=== PATIENT | female | born 1955 | race Caucasian/White ===

== ENCOUNTER 2022-08-23 19:59 | Emergency (ER) | payer OTHER ==
[~2022-08-23 19:59] MED LIST: Iopamidol 370 76% 125 ML VIAL FS ONE; Sodium Chloride 0.9% 100 ML BAG ONE
[2022-08-23 21:22] LABS: #Lymphocytes 1.3 thou/uL (1.20-3.40); #Monocytes 0.5 thou/uL (0.11-0.59); #Neutrophils 8.7 thou/uL (1.40-6.50); %Basophils 0.5 % (0.0-1.0); %Lymphocytes 12.3 % (21.0-51.0); %Monocytes 4.4 % (0.0-10.0); %Neutrophils 82.8 % (42.0-75.0); Hemoglobin 13.4 g/dL (12.0-16.0); Mean Corpuscular HGB CONC 32.5 g/dL (32.0-36.0); Mean Corpuscular Volume 98.4 fl (78.0-98.0); Mean Platelet Volume 5.9 fL (7.4-10.4); Platelet Count 387 10x3/uL (130-400); RBC Distribution Width 11.4 % (11.5-14.5); Red Blood Cell (RBC) Count 4.17 mill/uL (4.20-5.40); White Blood Cell (WBC) Count 10.6 10x3/uL (4.8-10.8)
[2022-08-23 21:41] LABS: Bilirubin Negative (Negative); Blood, Urine Trace (Negative); Clarity Clear (Clear); Glucose, Urine (Dipstick) Negative (Negative); Ketone, Urine Negative (Negative); Leukocyte Negative (Negative); Nitrite Negative (Negative); Protein, Urine (Dipstick) Trace mg/dL (Neg-Trace); Urobilinogen 0.2 mg/dL (Less than 2)
[2022-08-23 21:44] LABS: ALT (SGPT) 40 U/L (8-55); AST (SGOT) 27 U/L (5-34); Albumin 3.8 g/dL (3.4-4.8); Alkaline Phosphatase 98 U/L (40-110); Anion Gap 18 mmol/L (10-20); BUN (Urea Nitrogen) 15 mg/dL (9.8-20.1); Bilirubin, Total 0.4 mg/dL (0.2-1.2); Calc. Creatinine Clearance 0 mL/min (70-130); Calcium 8.8 mg/dL (7.8-10.44); Carbon Dioxide 19 mmol/L (23-31); Chloride 101 mmol/L (98-107); Estimated GFR 69; Globulin 2.6 g/dL (2.4-3.5); Glucose 274 mg/dL (80-115); Potassium 4.5 mmol/L (3.5-5.1); Protein, Total 6.4 g/dL (5.8-8.1); Sodium 133 mmol/L (136-145)
[2022-08-23] MEDS ORDERED: Sodium Chloride 0.9% 2,000 ML ONE (21:51)
[2022-08-23 21:52] LABS: Bacteria/HPF None Seen HPF (None Seen); RBC/HPF 0-3 HPF (0-3); Squamous Epithelial 0-3 HPF (0-3); Transitional Epithelial 0-3 HPF (None Seen)
[2022-08-23 22:05] LABS: CKMB 3.5 ng/mL (0-6.6)
[2022-08-23 22:07] LABS: SARS-CoV-2 NAA Rapid Test DETECTED (NotDetected)
[2022-08-24] MEDS ORDERED: Nicotine 21 MG PATCH TOP SCH (01:00)
[2022-08-24] MEDS ORDERED: traZODone HCl 50 MG TAB PO SCH (01:00)
[2022-08-24] MEDS ORDERED: Melatonin 3 MG TAB PO SCH (01:00)
[2022-08-24 01:17] LABS: Lactic Acid 1.5 mmol/L (0.5-2.2)
== END 2022-08-24 01:46 | disposition short-term general hospital (02) ==
LOC: MADERS 19:59
DX: U07.1 COVID-19 (principal); J12.82 Pneumonia due to coronavirus disease 2019; R77.8 Other specified abnormalities of plasma proteins; I10 Essential (primary) hypertension; I25.2 Old myocardial infarction; F17.210 Nicotine dependence, cigarettes, uncomplicated; Z79.899 Other long term (current) drug therapy
CPT/HCPCS: 0240U; 71275; 80053; 82553; 83605; 83880; 84484; 85025; 87040; 87086; 93005; 99285; 81003; 81015; J7050; Q9967

== ENCOUNTER 2022-09-22 10:50 | Emergency (ER) | payer OTHER ==
[~2022-09-22 10:50] MED LIST changes: +Iopamidol 370 76% 100 ML VIAL ONE; -Iopamidol 370 76% 125 ML VIAL FS ONE; -Sodium Chloride 0.9% 100 ML BAG ONE; +Sodium Chloride 0.9% 500 ML BAG ONE
[2022-09-22 11:16] LABS: Blood, Urine Trace (Negative); Glucose, Urine (Dipstick) 250 mg/dL (Negative)
[2022-09-22 11:19] LABS: Clarity Hazy (Clear)
[2022-09-22 11:20] LABS: Leukocyte Unable to Interpret (Negative); Nitrite Unable to Interpret (Negative)
[2022-09-22 11:21] LABS: Bilirubin Unable to Interpret (Negative); Ketone, Urine Unable to Interpret mg/dL (Negative); Protein, Urine (Dipstick) Unable to Interpret mg/dL (Neg-Trace); Urobilinogen UNABLE TO INTERPRET mg/dL (Less than 2)
[2022-09-22 11:23] LABS: Bacteria/HPF 4+ HPF (None Seen); Squamous Epithelial 0-3 HPF (0-3); WBC/HPF Greater Than 50 HPF (0-3)
[2022-09-22] MEDS ORDERED: Sodium Chloride 0.9% 500 ML ONE (11:24)
[2022-09-22 12:04] LABS: ALT (SGPT) 23 U/L (8-55); AST (SGOT) 22 U/L (5-34); Albumin 3.7 g/dL (3.4-4.8); Alkaline Phosphatase 110 U/L (40-110); Anion Gap 15 mmol/L (10-20); BUN (Urea Nitrogen) 8 mg/dL (9.8-20.1); Bilirubin, Total 0.5 mg/dL (0.2-1.2); Calc. Creatinine Clearance 0 mL/min (70-130); Calcium 9.5 mg/dL (7.8-10.44); Carbon Dioxide 22 mmol/L (23-31); Chloride 107 mmol/L (98-107); Estimated GFR 82; Globulin 3.1 g/dL (2.4-3.5); Glucose 148 mg/dL (80-115); Lipase 22 U/L (8-78); Magnesium 2.2 mg/dL (1.6-2.6); Potassium 4.8 mmol/L (3.5-5.1); Protein, Total 6.8 g/dL (5.8-8.1); Sodium 139 mmol/L (136-145)
[2022-09-22 12:11] LABS: #Basophils 0.1 thou/uL (0.0-0.2); #Lymphocytes 1.1 thou/uL (1.20-3.40); #Monocytes 0.8 thou/uL (0.11-0.59); #Neutrophils 11.8 thou/uL (1.40-6.50); %Basophils 0.8 % (0.0-1.0); %Eosinophils 0.1 % (0.0-10.0); %Lymphocytes 7.6 % (21.0-51.0); %Neutrophils 85.4 % (42.0-75.0); Hemoglobin 12.3 g/dL (12.0-16.0); Mean Corpuscular HGB CONC 33.4 g/dL (32.0-36.0); Mean Corpuscular Hemoglobin 32.1 pg (27.0-31.0); Mean Platelet Volume 5.8 fL (7.4-10.4); Platelet Count 345 10x3/uL (130-400); RBC Distribution Width 11.5 % (11.5-14.5); Red Blood Cell (RBC) Count 3.83 mill/uL (4.20-5.40); White Blood Cell (WBC) Count 13.9 10x3/uL (4.8-10.8)
[2022-09-22] MEDS ORDERED: cefTRIAXone\\ROCEPHIN 1 GM VIAL ONE (12:13)
[2022-09-22] MEDS ORDERED: Ondansetron PF 4 MG/2 ML Vial ONE (12:13)
[2022-09-22] MEDS ORDERED: Ketorolac Tromethamine 30 MG/ML VIAL ONE (14:10)
[2022-09-22] MEDS ORDERED: Diazepam 10 MG/2 ML SYRINGE ONE (14:10)
[2022-09-22] MEDS ORDERED: Nicotine 7 MG PATCH ONE (15:10)
== END 2022-09-22 16:20 | disposition short-term general hospital (02) ==
LOC: MADERS 10:50
DX: A41.9 Sepsis, unspecified organism (principal); N12 Tubulo-interstitial nephritis, not specified as acute or chronic; I10 Essential (primary) hypertension; E11.9 Type 2 diabetes mellitus without complications; F17.210 Nicotine dependence, cigarettes, uncomplicated; Z79.899 Other long term (current) drug therapy
CPT/HCPCS: 74177; 80053; 81003; 81015; 83605; 83690; 83735; 85025; 87077; 87086; 96365; 96375; J0696; J1885; J2405; J3360; J7030; Q9967

== ENCOUNTER 2023-07-19 19:12 | Emergency (ER) | payer OTHER | END 2023-07-19 22:10 | disposition home or self-care (01) | LOC: MADERS 19:12 | DX: M25.571 Pain in right ankle and joints of right foot (principal); I10 Essential (primary) hypertension; E11.9 Type 2 diabetes mellitus without complications; F17.210 Nicotine dependence, cigarettes, uncomplicated; Z79.899 Other long term (current) drug therapy ==

== ENCOUNTER 2023-10-11 07:16 | Emergency (ER) | payer OTHER ==
[2023-10-11 07:45] LABS: Bilirubin Negative (Negative); Blood, Urine Moderate (Negative); Glucose, Urine (Dipstick) Negative (Negative); Ketone, Urine Negative (Negative); Leukocyte Small (Negative); Nitrite Negative (Negative); Protein, Urine (Dipstick) > or equal to 300 mg/dL (Neg-Trace); Specific Gravity, Urine 1.025 (1.005-1.030); Urobilinogen 0.2 mg/dL (Less than 2)
[2023-10-11 07:46] LABS: Clarity Cloudy (Clear)
[2023-10-11 07:52] LABS: CAUTI Indications for Culture Dysuria,urgency,freq; WBC/HPF Greater Than 50 HPF (0-3)
[2023-10-11 07:53] LABS: Bacteria/HPF 3+ HPF (None Seen)
[2023-10-11 07:54] LABS: Urine Culture Reflex Yes Yes
[2023-10-11] MEDS ORDERED: Ondansetron ODT 4 MG TAB ONE (08:13)
[2023-10-11] MEDS ORDERED: Sodium Chloride 0.9% 100 ML ONE (08:46)
[2023-10-11] MEDS ORDERED: Ketorolac Tromethamine 30 MG (1 mL) VIAL ONE (08:46)
[2023-10-11] MEDS ORDERED: cefTRIAXone (ROCEPHIN) 1 GM VIAL ONE (08:46)
[2023-10-11] MEDS ORDERED: Sodium Chloride 0.9% 1,000 ML ONE ×2 (08:46→10:14)
[2023-10-11 09:25] LABS: ALT (SGPT) 32 U/L (8-55); AST (SGOT) 32 U/L (5-34); Albumin 3.4 g/dL (3.4-4.8); Alkaline Phosphatase 226 U/L (40-110); Anion Gap 20 mmol/L (10-20); BUN (Urea Nitrogen) 39 mg/dL (9.8-20.1); Bilirubin, Total 0.3 mg/dL (0.2-1.2); Calc. Creatinine Clearance 0 mL/min (70-130); Calcium 8.8 mg/dL (7.8-10.44); Carbon Dioxide 18 mmol/L (23-31); Chloride 103 mmol/L (98-107); Estimated GFR 14; Glucose 136 mg/dL (80-115); Potassium 4.3 mmol/L (3.5-5.1); Protein, Total 6.4 g/dL (5.8-8.1); Sodium 137 mmol/L (136-145)
[2023-10-11 09:26] LABS: Band 9 % (5-11); Hemoglobin 13.9 g/dL (12.0-16.0); Lymphocytes 3 % (21-51); MDiff Complete? YES; Macrocytosis SLIGHT = 6-15 cells (100X) (0-5/hpf); Manual Diff?? YES; Mean Corpuscular HGB CONC 32.4 g/dL (32.0-36.0); Mean Corpuscular Volume 101.8 fl (78.0-98.0); Mean Platelet Volume 7.7 fL (7.4-10.4); Monocytes 2 % (0-10); Neutrophil 85 % (42-75); Platelet Count 133 10x3/uL (130-400); RBC Distribution Width 12.8 % (11.5-14.5); Reactive Lymphocytes 1 % (0-10); Red Blood Cell (RBC) Count 4.23 mill/uL (4.20-5.40)
[2023-10-11 09:27] LABS: Platelet Adequacy Comment Appears Adequate
[2023-10-11] MEDS ORDERED: Nicotine 7 MG PATCH ONE (10:14)
[2023-10-11 11:52] LABS: Lactic Acid 2.2 mmol/L (0.5-2.2)
[2023-10-11] MEDS ORDERED: HYDROcodone/Acetaminophen 10/325 mg Tablet ONE (13:56)
== END 2023-10-11 15:20 | disposition short-term general hospital (02) ==
LOC: MADERS 07:16
DX: A41.9 Sepsis, unspecified organism (principal); N39.0 Urinary tract infection, site not specified; N17.9 Acute kidney failure, unspecified; I10 Essential (primary) hypertension; F17.210 Nicotine dependence, cigarettes, uncomplicated; E11.9 Type 2 diabetes mellitus without complications; Z79.899 Other long term (current) drug therapy
CPT/HCPCS: 36415; 80053; 81001; 83605; 85025; 87040; 87077; 87086; 87149; 87186; 96361; 96365; 96375; J0696; J1885; J3490; J7050; Q0162

== ENCOUNTER 2023-10-24 23:22 | Inpatient (IN) | payer OTHER ==
[2023-10-25] MEDS ORDERED: Bisacodyl 10 MG SUPP PR PRN (00:05)
[2023-10-25] MEDS: Acetaminophen 325 MG TAB PO PRN (06:14)
[2023-10-25] MEDS: Levothyroxine Sodium 100 MCG TAB PO SCH (06:14)
[2023-10-25] MEDS ORDERED: cefTRIAXone (ROCEPHIN) 2 GM VIAL IVPB SCH (09:00)
[2023-10-25] MEDS: Morphine ER 15 MG TAB PO SCH (09:43)
[2023-10-25] MEDS: Metoprolol Tartrate 25 MG TAB PO SCH (09:44)
[2023-10-25] MEDS: Famotidine 20 MG TAB PO SCH (09:44)
[2023-10-25] MEDS: Multivitamin W/ Minerals 1 TAB PO SCH (09:45)
[2023-10-25] MEDS: Midodrine HCl 5 MG TAB PO SCH (09:45)
[2023-10-25] MEDS: Rosuvastatin 10 MG TAB PO SCH (09:45)
[2023-10-25] MEDS: cefTRIAXone\\ROCEPHIN 2 GM in Sodium Chloride 0.9% 100 ML IVPB SCH (09:46)
[2023-10-25] MEDS: Ipratropium/Albuterol 3 ML NEB NEB SCH (10:30)
[2023-10-25] MEDS: Ondansetron ODT 4 MG TAB PO PRN (16:48)
[2023-10-25] MEDS: HYDROcodone/Acetaminophen 10/325 mg Tablet PO PRN (17:12)
[2023-10-25] MEDS: Fluconazole 100 MG TAB PO SCH (17:12)
[2023-10-25] MEDS: Mirtazapine 15 MG TAB PO SCH (21:05)
[2023-10-25] MEDS: traZODone HCl 50 MG TAB PO SCH (22:27)
[2023-10-26] MEDS ORDERED: Calcium Carbonate 500 MG ChewTAB PO PRN (19:13)
[2023-10-26] MEDS: Famotidine 20 MG TAB PO SCH (20:11)
[2023-10-26] MEDS: traZODone HCl 50 MG TAB PO SCH (21:13)
[2023-10-27 05:54] LABS: ALT (SGPT) 24 U/L (8-55); AST (SGOT) 20 U/L (5-34); Albumin 2.4 g/dL (3.4-4.8); Alkaline Phosphatase 69 U/L (40-110); Anion Gap 14 mmol/L (10-20); BUN (Urea Nitrogen) 31 mg/dL (9.8-20.1); Bilirubin, Total 0.3 mg/dL (0.2-1.2); Calc. Creatinine Clearance 28 mL/min (70-130); Calcium 8.3 mg/dL (7.8-10.44); Carbon Dioxide 26 mmol/L (23-31); Chloride 111 mmol/L (98-107); Estimated GFR 26; Globulin 2.7 g/dL (2.4-3.5); Glucose 88 mg/dL (80-115); Potassium 3.9 mmol/L (3.5-5.1); Protein, Total 5.1 g/dL (5.8-8.1); Sodium 147 mmol/L (136-145)
[2023-10-27 06:17] LABS: Hematocrit 25.8 % (36.0-47.0); Mean Corpuscular Hemoglobin 31.3 pg (27.0-31.0); Platelet Count 159 10x3/uL (130-400); RBC Distribution Width 15.5 % (11.5-14.5); Red Blood Cell (RBC) Count 2.55 mill/uL (4.20-5.40); White Blood Cell (WBC) Count 6.5 10x3/uL (4.8-10.8)
[2023-10-27 06:18] LABS: MDiff Complete? YES; Manual Diff?? YES
[2023-10-27 06:19] LABS: Band 3 % (5-11); Lymphocytes 17 % (21-51)
[2023-10-27 06:20] LABS: Eosinophils 1 % (0-10); Monocytes 6 % (0-10); Neutrophil 73 % (42-75)
[2023-10-27 06:21] LABS: Anisocytosis SLIGHT = 6-15 cells (100X) (0-5/hpf); Platelet Adequacy Comment Appears Adequate
[2023-10-27 06:26] LABS: Macrocytosis SLIGHT = 6-15 cells (100X) (0-5/hpf)
[2023-10-27] MEDS ORDERED: Sodium Chloride 0.65% Nasal 44 ML BOT EA NARE PRN (11:31)
[2023-10-27] MEDS: HYDROcodone/Acetaminophen 10/325 mg Tablet PO PRN (16:19)
[2023-10-27] MEDS: Megestrol Acetate 40 MG TAB PO SCH (20:01)
[2023-10-27] MEDS: Acetaminophen 325 MG TAB PO PRN (23:49)
[2023-10-28] MEDS ORDERED: Lidocaine 4% Patch TD PRN (13:59)
[2023-10-28] MEDS: Lidocaine 4% Patch TD PRN (15:54)
[2023-10-28] MEDS: Morphine ER 15 MG TAB PO SCH (19:57)
[2023-10-28] MEDS: Ondansetron ODT 4 MG TAB PO SCH (19:59)
[2023-10-29] MEDS: Transdermal Patch Removal TOP PRN (03:14)
[2023-10-29] MEDS: Morphine ER 15 MG TAB PO SCH (08:58)
[2023-10-30 06:20] LABS: #Eosinphils 0.1 thou/uL (0.0-0.7); #Lymphocytes 0.9 thou/uL (1.20-3.40); #Monocytes 0.5 thou/uL (0.11-0.59); #Neutrophils 7.7 thou/uL (1.40-6.50); %Basophils 0.5 % (0.0-1.0); %Eosinophils 0.7 % (0.0-10.0); %Lymphocytes 10.3 % (21.0-51.0); %Monocytes 4.9 % (0.0-10.0); %Neutrophils 83.6 % (42.0-75.0); Hematocrit 26.2 % (36.0-47.0); Hemoglobin 8.5 g/dL (12.0-16.0); Mean Corpuscular HGB CONC 32.3 g/dL (32.0-36.0); Mean Corpuscular Hemoglobin 31.8 pg (27.0-31.0); Mean Corpuscular Volume 98.5 fl (78.0-98.0); Platelet Count 143 10x3/uL (130-400); RBC Distribution Width 15.2 % (11.5-14.5); Red Blood Cell (RBC) Count 2.66 mill/uL (4.20-5.40); White Blood Cell (WBC) Count 9.2 10x3/uL (4.8-10.8)
[2023-10-30 06:34] LABS: ALT (SGPT) 18 U/L (8-55); AST (SGOT) 14 U/L (5-34); Albumin 2.5 g/dL (3.4-4.8); Alkaline Phosphatase 85 U/L (40-110); Anion Gap 14 mmol/L (10-20); BUN (Urea Nitrogen) 12 mg/dL (9.8-20.1); Bilirubin, Total 0.3 mg/dL (0.2-1.2); Calc. Creatinine Clearance 46 mL/min (70-130); Calcium 8.2 mg/dL (7.8-10.44); Carbon Dioxide 27 mmol/L (23-31); Chloride 110 mmol/L (98-107); Estimated GFR 46; Globulin 2.9 g/dL (2.4-3.5); Glucose 97 mg/dL (80-115); Potassium 3.5 mmol/L (3.5-5.1); Protein, Total 5.4 g/dL (5.8-8.1); Sodium 147 mmol/L (136-145)
[2023-10-30] MEDS: Bisacodyl 5 MG TAB PO PRN (16:54)
[2023-10-31] MEDS: Senokot S 8.6-50 MG TAB PO PRN (09:09)
[2023-10-31 09:35] LABS: Bilirubin Negative (Negative); Blood, Urine Trace (Negative); Glucose, Urine (Dipstick) Negative (Negative); Ketone, Urine Trace mg/dL (Negative); Leukocyte Small (Negative); Nitrite Negative (Negative); Protein, Urine (Dipstick) 30 mg/dL (Neg-Trace); Urobilinogen 0.2 mg/dL (Less than 2)
[2023-10-31 09:37] LABS: Clarity Hazy (Clear)
[2023-10-31 09:38] LABS: Bacteria/HPF 2+ HPF (None Seen); CAUTI Indications for Culture Fever or rigors; WBC/HPF Greater than 50 HPF (0-3)
[2023-10-31 09:39] LABS: Urine Culture Reflex Yes Yes
[2023-10-31] MEDS: Morphine ER 15 MG TAB PO SCH (10:09)
[2023-10-31] MEDS: Sulfameth/Trimethoprim DS 800-160mg TAB PO SCH (10:54)
[2023-10-31 11:06] LABS: Influenza A by NAA Not Detected (NotDetected); Influenza B by NAA Not Detected (NotDetected); RSV by NAA Not Detected (NotDetected); SARS-CoV-2 NAA Rapid Test Not Detected (NotDetected)
[2023-10-31] MEDS: Nitrofurantoin Monohyd/M-Cryst 100 MG CAP PO SCH (20:40)
[2023-10-31] MEDS ORDERED: Sulfameth/Trimethoprim DS 800-160mg TAB PO SCH (21:00)
[2023-11-03] MEDS: Milk Of Magnesia 30 ML UDCUP PO SCH (17:51)
[2023-11-03] MEDS: Morphine ER 15 MG TAB PO SCH (17:51)
[2023-11-03] MEDS ORDERED: Albuterol 2.5 MG (3 mL) NEB NEB PRN (23:25)
[2023-11-04 05:59] LABS: Band 1 % (5-11); Eosinophils 2 % (0-10); Hematocrit 26.5 % (36.0-47.0); Hemoglobin 8.4 g/dL (12.0-16.0); Lymphocytes 28 % (21-51); MDiff Complete? YES; Mean Corpuscular HGB CONC 31.5 g/dL (32.0-36.0); Mean Corpuscular Hemoglobin 31.3 pg (27.0-31.0); Mean Corpuscular Volume 99.4 fl (78.0-98.0); Mean Platelet Volume 7.2 fL (7.4-10.4); Monocytes 9 % (0-10); Neutrophil 60 % (42-75); Platelet Count 246 10x3/uL (130-400); RBC Distribution Width 15.1 % (11.5-14.5); Red Blood Cell (RBC) Count 2.67 mill/uL (4.20-5.40); White Blood Cell (WBC) Count 4.6 10x3/uL (4.8-10.8)
[2023-11-04 06:11] LABS: Anion Gap 14 mmol/L (10-20); BUN (Urea Nitrogen) 8 mg/dL (9.8-20.1); Calc. Creatinine Clearance 64 mL/min (70-130); Calcium 8.1 mg/dL (7.8-10.44); Carbon Dioxide 29 mmol/L (23-31); Chloride 106 mmol/L (98-107); Estimated GFR 68; Glucose 91 mg/dL (80-115); Sodium 146 mmol/L (136-145)
[2023-11-04] MEDS: Potassium Chloride 20 MEQ TAB PO SCH (08:09)
[2023-11-04] MEDS: Budesonide 0.5 MG/2 ML NEB INH SCH (08:29)
[2023-11-04] MEDS: Megestrol Acetate 400 MG/10 ML UDCUP PO SCH ×2 (09:53→10:04)
[2023-11-04] MEDS: Milk Of Magnesia 30 ML UDCUP PO PRN (17:37)
[2023-11-04] MEDS: Famotidine 20 MG TAB PO SCH (21:11)
[2023-11-04] MEDS: Rosuvastatin 10 MG TAB PO SCH (21:11)
[2023-11-05 05:43] LABS: Anion Gap 13 mmol/L (10-20); BUN (Urea Nitrogen) 8 mg/dL (9.8-20.1); Calc. Creatinine Clearance 65 mL/min (70-130); Calcium 8.1 mg/dL (7.8-10.44); Carbon Dioxide 30 mmol/L (23-31); Chloride 104 mmol/L (98-107); Estimated GFR 72; Glucose 94 mg/dL (80-115); Potassium 3.1 mmol/L (3.5-5.1); Sodium 144 mmol/L (136-145)
[2023-11-05] MEDS: Megestrol Acetate 400 MG/10 ML UDCUP PO SCH (09:07)
[2023-11-05 20:16] VITALS: BMI 21.9
[2023-11-05] MEDS: Phenazopyridine HCl 95 MG TAB PO SCH (22:13)
[2023-11-06] MEDS: Phenazopyridine HCl 95 MG TAB PO SCH (09:06)
[2023-11-07 05:41] LABS: Anion Gap 11 mmol/L (10-20); BUN (Urea Nitrogen) 8 mg/dL (9.8-20.1); Calc. Creatinine Clearance 64 mL/min (70-130); Calcium 8.2 mg/dL (7.8-10.44); Carbon Dioxide 29 mmol/L (23-31); Chloride 107 mmol/L (98-107); Estimated GFR 71; Glucose 95 mg/dL (80-115); Potassium 3.5 mmol/L (3.5-5.1); Sodium 143 mmol/L (136-145)
[2023-11-07] MEDS ORDERED: Magnesium Citrate 300 ML BOT PO PRN (10:37)
[2023-11-07] MEDS: Magnesium Citrate 300 ML BOT PO SCH (13:07)
[2023-11-07 16:56] VITALS: BP 116/65; TEMP 99.4
== END 2023-11-07 17:52 | disposition home or self-care (01) | DRG 690 ==
LOC: MADMS 23:22
PROVIDERS: ADMIT Family Medicine; ATTEND Family Medicine
DX: N39.0 Urinary tract infection, site not specified (principal); B96.20 Unspecified Escherichia coli [E. coli] as the cause of diseases classified elsewhere; I25.10 Atherosclerotic heart disease of native coronary artery without angina pectoris; J44.9 Chronic obstructive pulmonary disease, unspecified; E03.9 Hypothyroidism, unspecified; G89.29 Other chronic pain; F32.A Depression, unspecified; N18.9 Chronic kidney disease, unspecified; K27.9 Peptic ulcer, site unspecified, unspecified as acute or chronic, without hemorrhage or perforation; D63.1 Anemia in chronic kidney disease; R63.0 Anorexia; E11.22 Type 2 diabetes mellitus with diabetic chronic kidney disease; I12.9 Hypertensive chronic kidney disease with stage 1 through stage 4 chronic kidney disease, or unspecified chronic kidney disease; I25.2 Old myocardial infarction; Z86.73 Personal history of transient ischemic attack (TIA), and cerebral infarction without residual deficits; Z85.118 Personal history of other malignant neoplasm of bronchus and lung; Z79.899 Other long term (current) drug therapy; Z90.710 Acquired absence of both cervix and uterus; Z99.81 Dependence on supplemental oxygen; Z68.22 Body mass index [BMI] 22.0-22.9, adult
CPT/HCPCS: 0241U; 36415; 71045; 71046; 80048; 80053; 81001; 85025; 87086; J0696; J3490; J7620; J7626; Q0162; S0179

== ENCOUNTER 2024-03-27 10:51 | Emergency (ER) | payer OTHER, MEDICAID ==
[2024-03-27] MEDS ORDERED: Amoxicillin/Potassium Clav 875 MG TAB ONE (12:07)
[2024-03-27] MEDS ORDERED: predniSONE 20 MG TAB ONE (12:08)
[2024-03-27 13:15] LABS: SARS-CoV-2 E Target Positive; SARS-CoV-2 N2 Target Positive; SARS-CoV-2 NAA Rapid Test DETECTED (NotDetected); SARS-CoV-2 RdRP gene Positive
== END 2024-03-27 13:25 | disposition home or self-care (01) ==
LOC: MADERS 10:51
DX: U07.1 COVID-19 (principal); J44.1 Chronic obstructive pulmonary disease with (acute) exacerbation; I10 Essential (primary) hypertension; E11.9 Type 2 diabetes mellitus without complications
CPT/HCPCS: 71046; J7512; U0002

== ENCOUNTER 2024-07-16 12:59 | Emergency (ER) | payer OTHER, MEDICAID ==
[2024-07-16 13:53] LABS: Bilirubin Negative (Negative); Blood, Urine Negative (Negative); Clarity Clear (Clear); Glucose, Urine (Dipstick) Negative (Negative); Ketone, Urine Negative (Negative); Leukocyte Moderate (Negative); Nitrite Negative (Negative); Protein, Urine (Dipstick) Negative (Neg-Trace); Urobilinogen 0.2 mg/dL (Less than 2)
[2024-07-16 13:57] LABS: Bacteria/HPF 1+ HPF (None Seen); CAUTI Indications for Culture Dysuria,urgency,freq; RBC/HPF 0-3 HPF (0-3); Squamous Epithelial 0-3 HPF (0-3); WBC/HPF Greater than 50 HPF (0-3)
[2024-07-16 13:58] LABS: Urine Culture Reflex Yes Yes
== END 2024-07-16 14:45 | disposition home or self-care (01) ==
LOC: MADERS 12:59
DX: N39.0 Urinary tract infection, site not specified (principal); F17.210 Nicotine dependence, cigarettes, uncomplicated; I25.2 Old myocardial infarction; I10 Essential (primary) hypertension; E11.9 Type 2 diabetes mellitus without complications; Z86.73 Personal history of transient ischemic attack (TIA), and cerebral infarction without residual deficits; Z79.899 Other long term (current) drug therapy
CPT/HCPCS: 81001; 87077; 87086; 87186; 99283

== ENCOUNTER 2024-07-29 08:52 | Emergency (ER) | payer OTHER, MEDICAID ==
[2024-07-29 09:37] LABS: Bilirubin Negative (Negative); Blood, Urine Large (Negative); Clarity Cloudy (Clear); Glucose, Urine (Dipstick) Negative (Negative); Ketone, Urine Negative (Negative); Leukocyte Small (Negative); Nitrite Positive (Negative); Protein, Urine (Dipstick) > or equal to 300 mg/dL (Neg-Trace); Specific Gravity, Urine 1.025 (1.005-1.030); Urobilinogen 0.2 mg/dL (Less than 2)
[2024-07-29 09:52] LABS: CAUTI Indications for Culture Dysuria,urgency,freq; WBC/HPF Greater than 50 HPF (0-3)
[2024-07-29 09:53] LABS: Bacteria/HPF 2+ HPF (None Seen); Squamous Epithelial 0-3 HPF (0-3)
[2024-07-29 09:54] LABS: Urine Culture Reflex Yes Yes
== END 2024-07-29 10:19 | disposition home or self-care (01) ==
LOC: MADERS 08:52
DX: N39.0 Urinary tract infection, site not specified (principal); I10 Essential (primary) hypertension; E11.9 Type 2 diabetes mellitus without complications; I25.10 Atherosclerotic heart disease of native coronary artery without angina pectoris; F17.210 Nicotine dependence, cigarettes, uncomplicated; Z86.73 Personal history of transient ischemic attack (TIA), and cerebral infarction without residual deficits; Z79.899 Other long term (current) drug therapy
CPT/HCPCS: 81001; 87077; 87086; 99283

== ENCOUNTER 2025-05-07 10:29 | Emergency (ER) | payer OTHER ==
[2025-05-07 10:48] LABS: Glucose, Urine (Dipstick) Negative (Negative); Leukocyte Large (Negative); Protein, Urine (Dipstick) Negative (Neg-Trace); Specific Gravity, Urine 1.010 (1.005-1.030)
[2025-05-07 10:55] LABS: Bacteria/HPF 2+ HPF (None Seen); CAUTI Indications for Culture Dysuria,urgency,freq; Urine Culture Reflex Yes Yes; WBC/HPF Greater Than 50 HPF (0-3)
== END 2025-05-07 11:15 | disposition home or self-care (01) ==
LOC: MADERS 10:29
DX: N39.0 Urinary tract infection, site not specified (principal); I25.2 Old myocardial infarction; I10 Essential (primary) hypertension; E11.9 Type 2 diabetes mellitus without complications; F41.9 Anxiety disorder, unspecified; C34.92 Malignant neoplasm of unspecified part of left bronchus or lung; F17.210 Nicotine dependence, cigarettes, uncomplicated; Z86.73 Personal history of transient ischemic attack (TIA), and cerebral infarction without residual deficits
CPT/HCPCS: 81001; 87086

== ENCOUNTER 2025-07-29 17:18 | Emergency (ER) | payer OTHER ==
[~2025-07-29 17:18] MED LIST changes: -Sodium Chloride 0.9% 500 ML BAG ONE
[2025-07-29] MEDS ORDERED: Albuterol 2.5 MG (3 mL) NEB ONE ×2 (17:46→19:21)
[2025-07-29] MEDS ORDERED: Albuterol 2.5 MG (0.5 mL) NEB ONE (17:46)
[2025-07-29 18:20] LABS: INR-International Normal Ratio 1.0; PTT 30.0 sec (22.9-36.1); Prothrombin Time 13.6 sec (12.0-14.7)
[2025-07-29 18:21] LABS: Hematocrit 44.0 % (36.0-47.0); Hemoglobin 13.6 g/dL (12.0-16.0); Mean Corpuscular Hemoglobin 30.8 pg (27.0-31.0); Mean Corpuscular Volume 99.3 fl (78.0-98.0); Platelet Count 286 10x3/uL (130-400); Red Blood Cell (RBC) Count 4.43 mill/uL (4.20-5.40); White Blood Cell (WBC) Count 10.9 10x3/uL (4.8-10.8)
[2025-07-29 18:30] LABS: ALT (SGPT) 31 U/L (Less than 34); AST (SGOT) 35 U/L (11-34); Albumin 4.2 g/dL (3.1-4.5); Alkaline Phosphatase 125 U/L (40-110); Anion Gap 18 mmol/L (10-20); BUN (Urea Nitrogen) 18 mg/dL (9.8-20.1); Bilirubin, Total 0.3 mg/dL (0.3-1.2); Calc. Creatinine Clearance 0 mL/min (70-130); Calcium 8.8 mg/dL (7.8-10.44); Carbon Dioxide 18 mmol/L (23-31); Chloride 105 mmol/L (98-107); Globulin 2.9 g/dL (2.4-3.5); Glucose 148 mg/dL (80-115); Potassium 4.3 mmol/L (3.5-5.1); Sodium 137 mmol/L (136-145)
[2025-07-29 18:32] LABS: MDiff Complete? YES; Manual Diff?? YES; Platelet Adequacy Comment Appears Adequate
[2025-07-29] MEDS ORDERED: Ipratropium Bromide 2.5 ml Neb ONE (19:21)
[2025-07-29] MEDS ORDERED: Amoxicillin/Potassium Clav 875 MG TAB ONE (20:22)
== END 2025-07-29 20:31 | disposition home or self-care (01) ==
LOC: MADERS 17:18
DX: J44.1 Chronic obstructive pulmonary disease with (acute) exacerbation (principal); J98.11 Atelectasis; I25.2 Old myocardial infarction; I10 Essential (primary) hypertension; E11.9 Type 2 diabetes mellitus without complications; I25.10 Atherosclerotic heart disease of native coronary artery without angina pectoris; F17.210 Nicotine dependence, cigarettes, uncomplicated; Z86.73 Personal history of transient ischemic attack (TIA), and cerebral infarction without residual deficits; Z85.3 Personal history of malignant neoplasm of breast; D72.829 Elevated white blood cell count, unspecified; Z79.899 Other long term (current) drug therapy
CPT/HCPCS: 71045; 71275; 80053; 85025; 85610; 85730; 93005; 94760; 96374; J2919; J7611; J7644; Q9967